=== PATIENT | male | born 1955 | race Caucasian/White ===

== ENCOUNTER 2017-04-14 20:33 | Inpatient (IN) | payer BC ==
[~2017-04-14] VITALS: Ht 180.3 cm; Wt 131.5 kg
--- NOTE | ~2017-04-14 | CON ---
[place], [place] REPORT OF CONSULTATION NAME: ELLEN DOBBS UNIT #: [id number] ROOM: 506 DOCTOR: STONE ORTEGA OD BIRTHDATE: [birth year] DOS: 04/15/2017 HISTORY OF PRESENT ILLNESS: The patient had a pustule on the right forehead approximating his glabella. That advanced to an orbital abscess and then to a grade 4 preseptal cellulitis. He was seen in the [facility] and transferred to [facility]. Initially, his labs were negative, but subsequent labs found MRSA. He was put on IV antibiotics. I had added TobraDex drops 1 drop right eye every 2 hours and 1 drop to the left eye every 6 hours along with hot compresses. I saw the patient on April 17 in the Emergency Room. On eye examination, his lid chemosis was downgraded from a 4+ to 3+. With his present Rx, he was able to see right eye, 20/25; left eye, 20/25+. He had no ocular pain. He did not see diplopically and there was no proptosis. His pupils were equal in size, shape, likely reflux and there was no APD. Slit lamp examination found no eye involvement. His pupils were dilated widely but because of the lid chemosis, I was not able to view the fundus, grounds and for the same lesion, I was not able to measure his intraocular pressure. He was discharged that day with oral antibiotics and I was to see him on Sunday. This is an addendum. I did see the patient today, 04/20/2017. His preseptal cellulitis is downgraded from 3 to 2+, but his abscess was not completely healed. I added new Polysporin [id number] ointment applied to that area 4 times a day for 5 days and we will see the patient on Sunday. Until that time, he is not to go to work. STONE ORTEGA OD CM:CONSTR:REPORT OF CONSULTATION [id number] 04/20/17 [id number] interface
[~2017-04-14 20:33] MED LIST: Avapro300 MG PO; DRAMAMINE LESS25 MG PO; SEPTDS PO; ZOFRAN4 MG PO
[2017-04-14 20:58] VITALS: BP 139/72
[2017-04-14 22:10] LABS: BASO % 0.5 % (0.0-1.0); EOS # 0.2 10*3/uL (0.0-0.4); EOS % 2.3 % (1.0-4.0); HEMATOCRIT 37.9 % (42.0-52.0); LYMPH # 1.7 10*3/uL (1.3-4.4); LYMPH % 26.4 % (27.0-41.0); MEAN CORPUSCULAR HGB 32.3 pg (27.0-31.0); MEAN CORPUSCULAR HGB CONC 34.3 g/dl (33.0-37.0); MEAN PLATELET VOLUME 10.6 fl (9.6-12.3); MONO # 0.6 10*3/uL (0.1-1.0); MONO % 9.1 % (3.0-9.0); NEUT % 61.4 % (47.0-73.0); PLATELET COUNT AUTOMATED 156 10*3/uL (130-400); RED BLOOD COUNT 4.03 10*6/uL (4.50-5.90); RED CELL DISTRI WIDTH 12.7 % (0-14.5); WHITE BLOOD COUNT 6.5 10*3/uL (4.8-10.8)
[2017-04-14 22:25] LABS: ALBUMIN 3.7 gm/dl (3.1-4.5); ALKALINE PHOSPHATASE 116 U/L (45-117); BUN 26 mg/dl (7-24); CHLORIDE 109 mmol/L (98-107); CREATININE 1.22 mg/dL (0.70-1.30); POTASSIUM 4.6 mmol/L (3.5-5.1); SGOT/AST 22 IU/L (3-35); SGPT/ALT 39 U/L (12-78); SODIUM 142 mmol/L (136-145); TOTAL PROTEIN 6.9 gm/dL (6.4-8.2)
--- NOTE | 2017-04-14 22:35 | NUR ---
PT STATES THAT THE MEDICATION HE WAS GIVEN DID RELIEVE HIS PAIN. PT RATES PAIN 06/27. NO NEW ORDERS. WILL CONTINUE TO MONITOR.
[2017-04-15 01:18] VITALS: BP 141/86
[2017-04-15 02:02] VITALS: BP 145/72
[2017-04-15] MEDS ORDERED: ALLEGRA-D 24 H1 EACH PO (02:38)
--- NOTE | 2017-04-15 03:41 | NUR ---
PT. REQUESTED PAIN MEDICATION AT THIS TIME FOR RT. EYE PAIN 11/25. ADM. PRN MORPHINE AT THIS TIME, WILL MONITOR FOR EFFECTIVENESS.
--- NOTE | 2017-04-15 04:12 | NUR ---
PT. SLEEPING AT THIS TIME, RESPIRATIONS EASY AND UNLABORED. NO SIGNS OF DISTRESS.
--- NOTE | 2017-04-15 05:00 | NUR ---
SPOKE WITH DR. SMALL AT THIS TIME REGARDING PTS. REQUEST FOR AN ICE PACK. DR. SMALL STATED THAT HE COULD HAVE AN ICE PACK, BUT AN ORDER WAS NOT NEEDED. SPOKE WITH NURSING ELECTRICIAN APPRENTICE POWERHOUSE AT THIS TIME TO VERIFY THAT AN ORDER WAS INDEED NEEDED. AN ORDER FOR THE ICE PACK WAS PUT IN UNDER DR. SMALL.
[2017-04-15 06:27] LABS: BASO % 0.5 % (0.0-1.0); EOS # 0.2 10*3/uL (0.0-0.4); EOS % 1.9 % (1.0-4.0); HEMATOCRIT 39.5 % (42.0-52.0); HEMOGLOBIN 13.2 g/dl (14.0-18.0); LYMPH # 2.1 10*3/uL (1.3-4.4); LYMPH % 26.6 % (27.0-41.0); MEAN CELL VOLUME 95.2 fl (80.0-94.0); MEAN CORPUSCULAR HGB 31.8 pg (27.0-31.0); MEAN CORPUSCULAR HGB CONC 33.4 g/dl (33.0-37.0); MONO # 0.7 10*3/uL (0.1-1.0); MONO % 8.8 % (3.0-9.0); NEUT # 4.8 10*3/uL (2.3-7.9); NEUT % 61.9 % (47.0-73.0); PLATELET COUNT AUTOMATED 161 10*3/uL (130-400); RED BLOOD COUNT 4.15 10*6/uL (4.50-5.90); RED CELL DISTRI WIDTH 12.9 % (0-14.5); WHITE BLOOD COUNT 7.7 10*3/uL (4.8-10.8)
--- NOTE | 2017-04-15 06:40 | NUR ---
CALLED DR. GREER'S ANSWERING SERVICE AT THIS TIME. ANSWERING SERVICE TOOK MESSAGE AND STATED THAT DR. URIOSTEGUI IS ON FOR DR. GREER. AWAITING DR. URIOSTEGUI CALL BACK.
[2017-04-15 07:00] LABS: BUN 20 mg/dl (7-24); CHLORIDE 107 mmol/L (98-107); CHOLESTEROL 137 mg/dL (<200); CREATININE 1.21 mg/dL (0.70-1.30); POTASSIUM 3.9 mmol/L (3.5-5.1); SODIUM 140 mmol/L (136-145); TRIGLYCERIDES 96 mg/dl (<150); VLDL CHOLESTEROL 19 mg/dL (6-40)
[2017-04-15 07:09] LABS: HDL CHOLESTEROL 52 mg/dl (40-60); LDL CHOLESTEROL 66 mg/dL (9-159)
[2017-04-15 07:11] LABS: ACT PARTIAL THROMBO TIME 29.1 SECONDS (20.8-31.5); INTERNATIONAL NORM RATIO 0.9 (2.0-3.5)
[2017-04-15 07:45] LABS: VITAMIN D, 25-HYDROXY 23.3 ng/mL (30-100)
--- NOTE | 2017-04-15 07:47 | NUR ---
Shift chart check completed.
[2017-04-15 08:00] VITALS: BP 158/85
--- NOTE | 2017-04-15 08:52 | NUR ---
PATIENT MEDICATED WITH PO NORCO FOR PAIN 5/10 IN HIS RT EYE/FACE.
--- NOTE | 2017-04-15 09:45 | NUR ---
PATIENT STATES MEDICATION EFFECTIVE
[2017-04-15] MEDS ORDERED: MINOCYCLINE HC100 MG PO (10:39)
--- NOTE | 2017-04-15 10:40 | NUR ---
MEDS VERIFIED WITH [facility]
--- NOTE | 2017-04-15 11:09 | NUR ---
PATIENT MEDICATED WITH IVP MORPHINE FOR PAIN 5/10 IN HIS UPPER RIGHT EYE FOR PERIORBITAL CELLULITIS
[2017-04-15 12:00] VITALS: BP 160/86
--- NOTE | 2017-04-15 12:09 | NUR ---
PATIENT STATES MEDICTION EFFECTIVE
[2017-04-15 16:00] VITALS: BP 178/98
[2017-04-15 20:00] VITALS: BP 184/85
--- NOTE | 2017-04-15 20:00 | NUR ---
ASSUMED CARE OF PATIENT. ASSESSMENT COMPLETE. RESTING IN BED. CALL LIGHT IN REACH. WILL CONTINUE TO MONITOR.
--- NOTE | 2017-04-15 20:36 | NUR ---
PT RECEIVED MORPHINE FOR PAIN IN FOREHEAD/EYE AREA RATED 6/10.
--- NOTE | 2017-04-15 21:29 | NUR ---
PT STATES MORPHINE WAS EFFECTIVE. RATING PAIN 4/10.
--- NOTE | 2017-04-15 23:33 | NUR ---
PT RECEIVED RESTORIL TO AID IN SLEEP.
[2017-04-16] VITALS: BP 175/90
--- NOTE | 2017-04-16 00:20 | NUR ---
PT IS STILL AWAKE, CLAIMS RESTORIL DID NOT SHOE ASSOCIATE SLEEP OF YET.
--- NOTE | 2017-04-16 02:00 | NUR ---
SLEEPING. NO DISTRESS NOTED. CALL LIGHT IN REACH. WILL CONTINUE TO MONITOR.
--- NOTE | 2017-04-16 06:06 | NUR ---
PT RECEIVED MORPHINE FOR PAIN RATED 7/10 IN FACE.
--- NOTE | 2017-04-16 07:33 | NUR ---
Shift chart check completed.
[2017-04-16 07:38] LABS: BASO % 0.4 % (0.0-1.0); EOS # 0.2 10*3/uL (0.0-0.4); EOS % 2.8 % (1.0-4.0); HEMATOCRIT 36.6 % (42.0-52.0); HEMOGLOBIN 12.8 g/dl (14.0-18.0); LYMPH # 2.1 10*3/uL (1.3-4.4); LYMPH % 28.6 % (27.0-41.0); MEAN CELL VOLUME 92.7 fl (80.0-94.0); MEAN CORPUSCULAR HGB 32.4 pg (27.0-31.0); MEAN PLATELET VOLUME 10.3 fl (9.6-12.3); MONO # 0.8 10*3/uL (0.1-1.0); MONO % 10.4 % (3.0-9.0); NEUT # 4.2 10*3/uL (2.3-7.9); NEUT % 57.4 % (47.0-73.0); PLATELET COUNT AUTOMATED 152 10*3/uL (130-400); RED BLOOD COUNT 3.95 10*6/uL (4.50-5.90); RED CELL DISTRI WIDTH 12.8 % (0-14.5); WHITE BLOOD COUNT 7.2 10*3/uL (4.8-10.8)
--- NOTE | 2017-04-16 07:49 | NUR ---
DR CHEATHAM NOTIFIED THAT CLARITON D NEEDS ORDERED.
[2017-04-16 08:00] VITALS: BP 138/71
[2017-04-16 08:06] LABS: ALBUMIN 3.6 gm/dl (3.1-4.5); ALKALINE PHOSPHATASE 91 U/L (45-117); BUN 13 mg/dl (7-24); CHLORIDE 106 mmol/L (98-107); CREATININE 1.04 mg/dL (0.70-1.30); POTASSIUM 3.8 mmol/L (3.5-5.1); SGOT/AST 19 IU/L (3-35); SGPT/ALT 33 U/L (12-78); SODIUM 140 mmol/L (136-145); TOTAL PROTEIN 6.7 gm/dL (6.4-8.2)
--- NOTE | 2017-04-16 08:30 | NUR ---
STRICKLER ATTENDANT VS. SLEEPING. DID NOT WAKEN WHEN I CALLED HIS NAME.
[2017-04-16 12:00] VITALS: BP 154/73
--- NOTE | 2017-04-16 13:51 | NUR ---
PATIENT MEDICATED WITH PO MORPHINE FOR PAIN IN HIS RIGHT EYE RATED 5/10
--- NOTE | 2017-04-16 14:44 | NUR ---
CONSULT CALLED TO DR ORTEGA
--- NOTE | 2017-04-16 14:48 | NUR ---
PATIENT STATES MEDICATION EFFECTIVE
[2017-04-16 16:00] VITALS: BP 134/64
--- NOTE | 2017-04-16 16:00 | NUR ---
DR. LARSEN CALLED IN AND UPDATED ON PATIENT'S CONDITION.
[2017-04-16 20:00] VITALS: BP 127/69
--- NOTE | 2017-04-16 20:00 | NUR ---
ASSUMED CARE OF PATIENT. ASSESSMENT COMPLETE. RESTING IN BED. WARM COMPRESS TO RT EYE PER ORDER. CALL LIGHT IN REACH. WILL CONTINUE TO MONITOR.
--- NOTE | 2017-04-16 20:15 | NUR ---
PT STATES HE TAKES CLARITIN D OR NAVA D AT HOME FOR 35 YEARS BECAUSE HE GETS SINUS HEADACHES. HE IS VERY UPSET AT THIS TIME THAT CLARITIN WAS ORDERED. CALLED AND SPOKE TO DR SMALL. HE STATES IT WAS A PHARMACY SUBSITUTE AND WE DO NOT CARRY THE DECONGESTANT FORM AND IF THE PT WANTS IT HE CAN BRING IN HIS FROM HOME AND WE WILL SEND IT TO PHARMACY TO DOSE
--- NOTE | 2017-04-16 21:38 | NUR ---
PT RECEIVED MORPHINE FOR PAIN IN HIS HEAD RATED 7/10.
--- NOTE | 2017-04-16 22:19 | NUR ---
PT CLAIMS PAIN HAS REDUCED TO 5/10 AFTER MORPHINE.
[2017-04-17] VITALS: BP 136/84
--- NOTE | 2017-04-17 04:38 | NUR ---
MEDICATED WITH PRN MORPHINE FOR C/O RIGHT EYE PAIN. RATES 5/10
[2017-04-17 08:00] VITALS: BP 144/72
--- NOTE | 2017-04-17 08:30 | NUR ---
Agriscience Instructor in to talk to patient. Patient states lives at HOME with HIS . There are 3 steps in the home. Physician: DR GARDNER IN [facility] Pharmacy: [facility] IN [facility] health services: NONE Patient's level of ADLs: INDEPENDENT Patient has working utilities: YES DME: NONE Follow-up physician's appointment after d/c: WILL BE MADE PRIOR TO DC Does patient want to access PORTAL?: Discharge plan HOME. [place]
[2017-04-17 12:00] VITALS: BP 153/89
[2017-04-17 16:00] VITALS: BP 151/92
[2017-04-17] MEDS ORDERED: SEPTDS PO (16:28)
[2017-04-17 20:00] VITALS: BP 150/72
--- NOTE | 2017-04-17 20:00 | NUR ---
ASSUMED CARE OF PATIENT. ASSESSMENT COMPLETE. RESTING IN BED. NO VOICED COMPLAINTS. WARM COMPRESS PER ORDER. CALL LIGHT IN REACH. WILL CONTINUE TO MONITOR.
--- NOTE | 2017-04-17 21:10 | NUR ---
MEDICATED WITH PRN NORCO FOR C/O RIGHT EYE PAIN. RATES 5.
--- NOTE | 2017-04-17 22:30 | NUR ---
PER PATIENT, EARLIER NORCO EFFECTIVE
[2017-04-18] VITALS: BP 134/86
[2017-04-18 08:00] VITALS: BP 165/91
[2017-04-18] MEDS ORDERED: TOBRADEX 0.1%-0.5 ML OPH (11:11)
[2017-04-18] MEDS ORDERED: VITAMIN D-32000 UNI1 PO (11:11)
--- NOTE | 2017-04-18 13:21 | NUR ---
DISCHARGE INSTRUCTIONS REVIEWED. [place] DISCONTINUED.
--- NOTE | 2017-04-18 13:35 | NUR ---
PT DISCHARGED VIA WHEELCHAIR TO PRIVATE CAR AND IS TO BE TAKEN HOME BY HIS .
== END 2017-04-18 13:30 | disposition home or self-care (01) | DRG 872 ==
LOC: ED 20:33 → 5E 04-15 00:47 → EDHOLD 04-15 00:47 → 5E 04-15 00:51
PROVIDERS: Internal Medicine; Student in an Organized Health Care Education/Training Program; ADMIT Internal Medicine
DX: A41.9 Sepsis, unspecified organism (principal); E66.01 Morbid (severe) obesity due to excess calories; L03.213 Periorbital cellulitis; E55.9 Vitamin D deficiency, unspecified; B95.62 Methicillin resistant Staphylococcus aureus infection as the cause of diseases classified elsewhere; J30.2 Other seasonal allergic rhinitis; Z96.652 Presence of left artificial knee joint; I10 Essential (primary) hypertension; Z22.322 Carrier or suspected carrier of Methicillin resistant Staphylococcus aureus; Z79.899 Other long term (current) drug therapy; Z68.41 Body mass index [BMI] 40.0-44.9, adult; Z87.891 Personal history of nicotine dependence

== ENCOUNTER → 2017-12-25 | Day surgery (SDC) | payer BC ==
[~2017-12-25] VITALS: Ht 182.8 cm; Wt 133.8 kg
[~2017-12-25] MED LIST changes: +ALLEGRA-D 24 H1 EACH PO; +ESCITALOPRAM OX20 MG PO; +IRBESARTAN300 M1 PO; +MINOCYCLINE HC100 MG PO; +OXYBUTYNIN CHLO15 MG PO; +Synthroid,Levo25 MCG PO; +TOBRADEX 0.1%-0.5 ML OPH; +VITAMIN D-32000 UNI1 PO
[2017-12-25 07:29] VITALS: BP 119/71
[2017-12-25 08:53] VITALS: BP 98/52
[2017-12-25 09:08] VITALS: BP 107/62
[2017-12-25 09:23] VITALS: BP 126/84
== END | disposition home or self-care (01) ==
LOC: SDC 12-11 08:00
DX: K57.30 Diverticulosis of large intestine without perforation or abscess without bleeding (principal); K64.8 Other hemorrhoids; I10 Essential (primary) hypertension; K21.9 Gastro-esophageal reflux disease without esophagitis; M19.90 Unspecified osteoarthritis, unspecified site; E07.9 Disorder of thyroid, unspecified; F32.9 Major depressive disorder, single episode, unspecified; G47.30 Sleep apnea, unspecified; E66.9 Obesity, unspecified; Z68.41 Body mass index [BMI] 40.0-44.9, adult; Z87.891 Personal history of nicotine dependence; Z96.652 Presence of left artificial knee joint; Z79.899 Other long term (current) drug therapy; Z98.890 Other specified postprocedural states

== ENCOUNTER → 2018-03-06 | Outpatient (CLI) | payer BC, MEDICARE | END | disposition home or self-care (01) | LOC: CARD 09:13 | DX: I07.1 Rheumatic tricuspid insufficiency (principal) ==

== ENCOUNTER → 2018-10-22 | Outpatient (CLI) | payer MEDICARE, BC ==
[~2018-10-22] MED LIST changes: +NORCO 10-325 T1 EACH PO
== END | disposition home or self-care (01) ==
LOC: LAB 10:05
DX: R05 Cough (principal)

== ENCOUNTER → 2020-01-17 | Outpatient (CLI) | payer MEDICARE, BC ==
[2020-01-17 07:43] LABS: BASO % 0.3 % (0.0-1.0); EOS # 0.1 10*3/uL (0.0-0.4); EOS % 1.8 % (1.0-4.0); HEMATOCRIT 44.9 % (42.0-52.0); LYMPH # 2.3 10*3/uL (1.3-4.4); LYMPH % 36.8 % (27.0-41.0); MEAN CELL VOLUME 92.4 fl (80.0-94.0); MEAN CORPUSCULAR HGB 31.3 pg (27.0-31.0); MEAN CORPUSCULAR HGB CONC 33.9 g/dl (33.0-37.0); MEAN PLATELET VOLUME 10.2 fl (9.6-12.3); MONO # 0.6 10*3/uL (0.1-1.0); MONO % 9.6 % (3.0-9.0); NEUT # 3.2 10*3/uL (2.3-7.9); NEUT % 51.2 % (47.0-73.0); PLATELET COUNT AUTOMATED 161 10*3/uL (130-400); RED BLOOD COUNT 4.86 10*6/uL (4.50-5.90); RED CELL DISTRI WIDTH 13.2 % (0-14.5); WHITE BLOOD COUNT 6.3 10*3/uL (4.8-10.8)
[2020-01-17 08:12] LABS: ALKALINE PHOSPHATASE 103 U/L (45-117); BUN 27 mg/dl (7-24); CHLORIDE 108 mmol/L (98-107); CHOLESTEROL 157 mg/dL (<200); HDL CHOLESTEROL 52 mg/dl (40-60); LDL CHOLESTEROL 91 mg/dL (9-159); POTASSIUM 4.2 mmol/L (3.5-5.1); SGOT/AST 20 IU/L (3-35); SGPT/ALT 39 U/L (12-78); SODIUM 138 mmol/L (136-145); TOTAL PROTEIN 7.1 gm/dL (6.4-8.2); TRIGLYCERIDES 68 mg/dl (<150); VLDL CHOLESTEROL 14 mg/dL (6-40)
== END | disposition home or self-care (01) ==
LOC: LAB 07:23
PROVIDERS: Family Medicine
DX: I10 Essential (primary) hypertension (principal); R53.83 Other fatigue; R73.03 Prediabetes

== ENCOUNTER 2020-05-15 09:44 | Emergency (ER) | payer MEDICARE, BC ==
[~2020-05-15] VITALS: Ht 172.7 cm; Wt 113.4 kg
[2020-05-15 10:03] LABS: BASO % 0.2 % (0.0-1.0); EOS % 0.2 % (1.0-4.0); HEMATOCRIT 46.6 % (42.0-52.0); LYMPH # 1.9 10*3/uL (1.3-4.4); LYMPH % 23.1 % (27.0-41.0); MEAN CELL VOLUME 94.9 fl (80.0-94.0); MEAN CORPUSCULAR HGB 31.2 pg (27.0-31.0); MEAN CORPUSCULAR HGB CONC 32.8 g/dl (33.0-37.0); MEAN PLATELET VOLUME 10.2 fl (9.6-12.3); MONO % 12.9 % (3.0-9.0); NEUT # 5.1 10*3/uL (2.3-7.9); NEUT % 62.7 % (47.0-73.0); PLATELET COUNT AUTOMATED 113 10*3/uL (130-400); RED BLOOD COUNT 4.91 10*6/uL (4.50-5.90); RED CELL DISTRI WIDTH 12.9 % (0-14.5); WHITE BLOOD COUNT 8.1 10*3/uL (4.8-10.8)
[2020-05-15 10:12] LABS: ACT PARTIAL THROMBO TIME 32.5 SECONDS (20.0-32.1); INTERNATIONAL NORM RATIO 0.9 (2.0-3.5)
[2020-05-15 10:38] LABS: ALBUMIN 3.6 gm/dl (3.1-4.5); ALKALINE PHOSPHATASE 99 U/L (45-117); BUN 24 mg/dl (7-24); CHLORIDE 108 mmol/L (98-107); CREATININE 1.06 mg/dL (0.70-1.30); POTASSIUM 4.1 mmol/L (3.5-5.1); SGOT/AST 60 IU/L (3-35); SGPT/ALT 171 U/L (12-78); SODIUM 139 mmol/L (136-145); TOTAL PROTEIN 6.9 gm/dL (6.4-8.2)
[2020-05-15 10:43] LABS: TROPONIN I < 0.015 ng/ml (<0.045)
[2020-05-15] MEDS ORDERED: VIBRAMYCIN100 MG PO (10:55)
== END 2020-05-15 11:24 | disposition home or self-care (01) ==
LOC: ED 09:44
PROVIDERS: Emergency Medicine
DX: J40 Bronchitis, not specified as acute or chronic (principal); Z79.899 Other long term (current) drug therapy

== ENCOUNTER → 2020-12-01 | Outpatient (CLI) | payer MEDICARE, BC ==
[~2020-12-01] MED LIST changes: +VIBRAMYCIN100 MG PO
== END | disposition home or self-care (01) ==
LOC: LAB 15:19
PROVIDERS: ATTEND Internal Medicine
DX: N40.1 Benign prostatic hyperplasia with lower urinary tract symptoms (principal)

== ENCOUNTER 2022-09-26 15:55 | Inpatient (IN) | payer MEDICARE, BC ==
[~2022-09-26] VITALS: Ht 185.4 cm; Wt 126.1 kg
[~2022-09-26 15:55] MED LIST changes: +BUPROPION XL300 MG PO; +DICYCLOMINE HCL10 MG PO; +METOPROLOL SUCC25 M2 PO; +OMEPRAZOLE40 MG PO
[2022-09-26 16:01] VITALS: BP 185/95
[2022-09-26 16:26] LABS: BASO # 0.1 10*3/uL (0.0-0.1); BASO % 0.7 % (0.0-1.0); EOS # 0.2 10*3/uL (0.0-0.4); EOS % 2.1 % (1.0-4.0); HEMATOCRIT 45.9 % (42.0-52.0); LYMPH # 2.5 10*3/uL (1.3-4.4); MEAN CELL VOLUME 95.2 fl (80.0-94.0); MEAN CORPUSCULAR HGB 32.2 pg (27.0-31.0); MEAN CORPUSCULAR HGB CONC 33.8 g/dl (33.0-37.0); MEAN PLATELET VOLUME 10.2 fl (9.6-12.3); MONO # 0.8 10*3/uL (0.1-1.0); MONO % 10.8 % (3.0-9.0); NEUT # 3.5 10*3/uL (2.3-7.9); NEUT % 50.1 % (47.0-73.0); PLATELET COUNT AUTOMATED 193 10*3/uL (130-400); RED BLOOD COUNT 4.82 10*6/uL (4.50-5.90); RED CELL DISTRI WIDTH 12.7 % (0-14.5); WHITE BLOOD COUNT 7.1 10*3/uL (4.8-10.8)
[2022-09-26 16:37] LABS: ACT PARTIAL THROMBO TIME 29.7 SECONDS (20.0-32.1)
[2022-09-26 16:44] LABS: ALKALINE PHOSPHATASE 90 U/L (46-116); BUN 8 mg/dl (9-23); CHLORIDE 109 mmol/L (98-107); LIPASE 53 U/L (12-53); POTASSIUM 4.3 mmol/L (3.4-5.1); SGPT/ALT 30 U/L (10-49); TOTAL PROTEIN 6.5 gm/dL (6.0-8.0)
[2022-09-26 18:36] VITALS: BP 179/99
[2022-09-26 21:00] VITALS: BP 170/78
[2022-09-26 22:20] VITALS: BP 131/85
[2022-09-27 04:00] VITALS: BP 143/98
[2022-09-27 05:21] LABS: ALKALINE PHOSPHATASE 78 U/L (46-116); BUN 8 mg/dl (9-23); CHLORIDE 108 mmol/L (98-107); CHOLESTEROL 127 mg/dL (<200); LDL CHOLESTEROL 70 mg/dL (9-159); POTASSIUM 4.2 mmol/L (3.4-5.1); SGPT/ALT 26 U/L (10-49); TOTAL PROTEIN 5.8 gm/dL (6.0-8.0); TRIGLYCERIDES 108 mg/dl (<150)
[2022-09-27 06:02] LABS: BASO % 0.6 % (0.0-1.0); EOS # 0.1 10*3/uL (0.0-0.4); EOS % 2.4 % (1.0-4.0); HEMATOCRIT 42.5 % (42.0-52.0); LYMPH % 40.5 % (27.0-41.0); MEAN CELL VOLUME 96.2 fl (80.0-94.0); MEAN CORPUSCULAR HGB 31.9 pg (27.0-31.0); MEAN CORPUSCULAR HGB CONC 33.2 g/dl (33.0-37.0); MEAN PLATELET VOLUME 10.6 fl (9.6-12.3); MONO # 0.6 10*3/uL (0.1-1.0); MONO % 11.1 % (3.0-9.0); NEUT # 2.2 10*3/uL (2.3-7.9); PLATELET COUNT AUTOMATED 156 10*3/uL (130-400); RED BLOOD COUNT 4.42 10*6/uL (4.50-5.90); RED CELL DISTRI WIDTH 12.7 % (0-14.5)
[2022-09-27] MEDS ORDERED: PANTOPRAZOLE SO40 MG PO (07:51)
[2022-09-27 07:58] VITALS: BP 154/94
[2022-09-27 12:00] VITALS: BP 147/79
[2022-09-27] MEDS ORDERED: CARVEDILOL6.25 MG PO (12:44)
[2022-09-27] MEDS ORDERED: ASPIRIN ADULT L81 M2 PO (12:44)
[2022-09-27] MEDS ORDERED: ATORVASTATIN CA80 M1 PO (12:44)
== END 2022-09-27 14:22 | disposition home or self-care (01) | DRG 313 ==
LOC: ED 15:55 → EDHOLD 19:06 → ICCU 20:58
PROVIDERS: Emergency Medicine; Student in an Organized Health Care Education/Training Program; ADMIT Internal Medicine; ATTEND Internal Medicine
DX: R07.89 Other chest pain (principal); I16.0 Hypertensive urgency; E66.9 Obesity, unspecified; E87.8 Other disorders of electrolyte and fluid balance, not elsewhere classified; E80.6 Other disorders of bilirubin metabolism; I10 Essential (primary) hypertension; F32.9 Major depressive disorder, single episode, unspecified; K21.9 Gastro-esophageal reflux disease without esophagitis; E03.9 Hypothyroidism, unspecified; E78.5 Hyperlipidemia, unspecified; Z83.3 Family history of diabetes mellitus; Z68.36 Body mass index [BMI] 36.0-36.9, adult; Z79.899 Other long term (current) drug therapy; Z79.82 Long term (current) use of aspirin; Z87.891 Personal history of nicotine dependence

== ENCOUNTER 2022-10-23 14:49 | Emergency (ER) | payer MEDICARE, BC ==
[~2022-10-23] VITALS: Ht 185.4 cm; Wt 127.0 kg
[~2022-10-23 14:49] MED LIST changes: +ASPIRIN ADULT L81 M2 PO; +ATORVASTATIN CA80 M1 PO; +CARVEDILOL6.25 MG PO; +PANTOPRAZOLE SO40 MG PO
[2022-10-23 15:17] LABS: BASO % 0.7 % (0.0-1.0); EOS # 0.2 10*3/uL (0.0-0.4); EOS % 2.6 % (1.0-4.0); HEMATOCRIT 44.2 % (42.0-52.0); LYMPH % 34.8 % (27.0-41.0); MEAN CELL VOLUME 94.4 fl (80.0-94.0); MEAN CORPUSCULAR HGB 31.6 pg (27.0-31.0); MEAN CORPUSCULAR HGB CONC 33.5 g/dl (33.0-37.0); MEAN PLATELET VOLUME 10.6 fl (9.6-12.3); MONO # 0.5 10*3/uL (0.1-1.0); MONO % 8.3 % (3.0-9.0); NEUT # 3.1 10*3/uL (2.3-7.9); NEUT % 53.3 % (47.0-73.0); PLATELET COUNT AUTOMATED 170 10*3/uL (130-400); RED BLOOD COUNT 4.68 10*6/uL (4.50-5.90); RED CELL DISTRI WIDTH 12.2 % (0-14.5); WHITE BLOOD COUNT 5.8 10*3/uL (4.8-10.8)
[2022-10-23 15:28] LABS: ACT PARTIAL THROMBO TIME 28.7 SECONDS (20.0-32.1); INTERNATIONAL NORM RATIO 1.1 (2.0-3.5)
[2022-10-23 15:39] LABS: ALKALINE PHOSPHATASE 84 U/L (46-116); BUN 14 mg/dl (9-23); CHLORIDE 108 mmol/L (98-107); POTASSIUM 3.7 mmol/L (3.4-5.1); SGPT/ALT 26 U/L (10-49); TOTAL PROTEIN 6.2 gm/dL (6.0-8.0)
[2022-10-23] MEDS ORDERED: MONTELUKAST SOD10 MG PO (15:53)
[2022-10-23] MEDS ORDERED: PEPCID40 MG PO (18:01)
== END 2022-10-23 19:33 | disposition home or self-care (01) ==
LOC: ED 14:49
PROVIDERS: Family Medicine
DX: K21.9 Gastro-esophageal reflux disease without esophagitis (principal); Z79.899 Other long term (current) drug therapy; Z90.89 Acquired absence of other organs; Z98.890 Other specified postprocedural states; Z87.891 Personal history of nicotine dependence

== ENCOUNTER → 2025-02-18 | Outpatient (CLI) | payer MEDICARE, OTHER ==
[~2025-02-18] MED LIST changes: +MONTELUKAST SOD10 MG PO; +PEPCID40 MG PO
[2025-02-18 07:22] LABS: BASO # 0.0 10*3/uL (0.0-0.1); BASO % 0.4 % (0.0-1.0); EOS # 0.2 10*3/uL (0.0-0.4); EOS % 3.4 % (1.0-4.0); MEAN CELL VOLUME 93.5 fl (80.0-94.0); MEAN CORPUSCULAR HGB 32.0 pg (27.0-31.0); MEAN PLATELET VOLUME 9.9 fl (9.6-12.3); MONO # 0.5 10*3/uL (0.1-1.0); MONO % 9.7 % (3.0-9.0); NEUT # 2.4 10*3/uL (2.3-7.9); NEUT % 47.0 % (47.0-73.0); NUCLEATED RED BLOOD CELL 0.0 % (0.0-0.0); NUCLEATED RED BLOOD CELL 0.0 10*3/uL (0.0-0.0); PLATELET COUNT AUTOMATED 166 10*3/uL (130-400); RED CELL DISTRI WIDTH 11.8 % (0-14.5)
[2025-02-18 08:07] LABS: BUN 12 mg/dl (9-23); FREE T4 1.10 ng/dl (0.89-1.76); LDL CHOLESTEROL 48 mg/dL (9-159); SGPT/ALT 41 U/L (5-49)
== END | disposition home or self-care (01) ==
LOC: LAB 07:05
PROVIDERS: ATTEND Family Medicine
DX: I10 Essential (primary) hypertension (principal); E03.9 Hypothyroidism, unspecified; R53.83 Other fatigue; R73.03 Prediabetes

== ENCOUNTER 2025-04-16 08:29 | Emergency (ER) | payer MEDICARE, OTHER ==
[~2025-04-16] VITALS: Ht 182.8 cm; Wt 122.5 kg
[2025-04-16 09:25] LABS: BASO # 0.0 10*3/uL (0.0-0.1); BASO % 0.5 % (0.0-1.0); EOS # 0.1 10*3/uL (0.0-0.4); EOS % 3.1 % (1.0-4.0); MEAN CELL VOLUME 94.0 fl (80.0-94.0); MEAN CORPUSCULAR HGB 31.9 pg (27.0-31.0); MEAN PLATELET VOLUME 10.3 fl (9.6-12.3); MONO # 0.4 10*3/uL (0.1-1.0); MONO % 9.8 % (3.0-9.0); NEUT # 1.9 10*3/uL (2.3-7.9); NEUT % 45.7 % (47.0-73.0); NUCLEATED RED BLOOD CELL 0.0 % (0.0-0.0); NUCLEATED RED BLOOD CELL 0.0 10*3/uL (0.0-0.0); PLATELET COUNT AUTOMATED 142 10*3/uL (130-400); RED CELL DISTRI WIDTH 12.3 % (0-14.5)
[2025-04-16 09:47] LABS: BUN 15 mg/dl (9-23)
[2025-04-16 09:57] LABS: BILIRUBIN Negative (Negative); BLOOD Negative (Negative); CLARITY Clear (Clear); COLOR Yellow (Yellow); KETONE Negative (Negative); LEUKO ESTERASE Negative (Negative); NITRITE Negative (Negative); PH 5.5 (4.5-8.0); SPECIFIC GRAVITY 1.015 (1.001-1.030); UROBILINOGEN 1.0 E.U./dl (0.0-1.0)
[2025-04-16 10:05] LABS: BACTERIA 1+; EPITHELIAL CELLS 0-2; RBC 0-2 rbc/hpf (0-2); WBC 0-2 wbc/hpf (0-5)
== END 2025-04-16 10:59 | disposition home or self-care (01) ==
LOC: ED 08:29
PROVIDERS: Emergency Medicine
DX: M54.16 Radiculopathy, lumbar region (principal); R53.1 Weakness; K21.9 Gastro-esophageal reflux disease without esophagitis; I10 Essential (primary) hypertension; G47.30 Sleep apnea, unspecified; Z87.891 Personal history of nicotine dependence; Z98.890 Other specified postprocedural states; Z90.89 Acquired absence of other organs; Z96.652 Presence of left artificial knee joint